=== PATIENT | male | born 1990 | race Hispanic/Latino ===

== ENCOUNTER 2017-08-02 17:46 | Observation (INO) | payer OTHER ==
[2017-08-02] MEDS ORDERED: Sodium Chloride 0.9% 1,000 ML IV STA (19:22)
--- NOTE | 2017-08-02 19:33 | ED PDOC ---
HPI: General Adult Time Seen by Provider: 08/02/17 18:49 Chief Complaint (Nursing): Abdominal Pain History Per: Patient Additional Complaint(s): Pt. states since 2100 yesterday he's had constant abdominal pain. States initially pain was localized to the epigastrum but as the day progressed today pain worsened and traveled to the RLQ. Reports initially feeling nauseous which has since resolved. Denies vomiting, diarrhea, fever, chest pain, SOB, rash, trauma, palpitations. Last BM was today and was normal. Past Medical History Reviewed: Historical Data, Nursing Documentation, Vital Signs Vital Signs: Last Vital Signs Temp 98 F 08/02/17 18:22 Pulse 82 08/02/17 18:22 Resp 18 08/02/17 18:22 BP 133/86 08/02/17 18:22 Pulse Ox 99 08/02/17 18:22 - Medical History PMH: Cardia Arrhythmia - Surgical History Other surgeries: L inguinal hernia repair - Family History Family History: States: No Known Family Hx - Allergies Allergies/Adverse Reactions: Allergies Allergy/AdvReac Type Severity Reaction Status Date / Time No Known Allergies Allergy Verified 08/02/17 18:22 Review of Systems ROS Statement: Except As Marked, All Systems Reviewed And Found Negative Gastrointestinal: Positive for: Nausea, Abdominal Pain Physical Exam - Reviewed Nursing Documentation Reviewed: Yes Vital Signs Reviewed: Yes - Physical Exam Appears: Positive for: Well, Non-toxic, No Acute Distress Head Exam: Positive for: ATRAUMATIC, NORMAL INSPECTION, NORMOCEPHALIC Skin: Positive for: Normal Color, Warm. Negative for: Rash Eye Exam: Positive for: EOMI, Normal appearance, PERRL ENT: Positive for: Normal ENT Inspection Neck: Positive for: Normal, Painless ROM Cardiovascular/Chest: Positive for: Regular Rate, Rhythm Respiratory: Positive for: CNT, Normal Breath Sounds Gastrointestinal/Abdominal: Positive for: Normal Exam, Bowel Sounds, Soft, Tenderness (mild RLQ), Other (negative psoas and obturator sign). Negative for : Guarding Back: Positive for: Normal Inspection. Negative for: L CVA Tenderness, R CVA Tenderness Extremity: Positive for: Normal ROM Neurologic/Psych: Positive for: Alert, Oriented - ECG O2 Sat by Pulse Oximetry: 99 ED OBSERVATION Date of observation admission: 08/02/17 Time of observation admission: 19:22 - Observation admission statement Patient is being placed in observation because:: abdominal pain - Progress Note Progress Note: 08/02/17 19:[address] abd/pelvis w/ IV contrast ordered. IV NS bolus ordered. Pt. kept NPO. Pt. was offered pain/antiemetics but refused. Disposition - Clinical Impression Clinical Impression: Abdominal pain - Patient ED Disposition Is Patient to be Admitted: Transfer of Care (Signed out to Edwina CHENEY pending CT and lab results.) - Disposition Disposition Time: 20:00 Condition: STABLE Forms: [employer] (Khmer)
[2017-08-02 20:18] LABS: BASO # 0.1 K/uL (0.0-0.2); BASO % 0.9 % (0.0-2.0); EOS # 0.2 K/uL (0.0-0.7); EOS % 1.8 % (0.0-4.0); HEMATOCRIT 46.4 % (35.0-51.0); LYMPH # 1.4 K/uL (1.0-4.3); MEAN CELL VOLUME 89.5 fl (80.0-94.0); MEAN CORPUSCULAR HEMOGLOBIN 30.3 pg (27.0-31.0); MEAN CORPUSCULAR HGB CONC 33.8 g/dL (33.0-37.0); MEAN PLATELET VOLUME 7.5 fl (7.2-11.7); MONO # 0.9 K/uL (0.0-0.8); MONO % 10.8 % (0.0-10.0); NEUT # 6.1 K/uL (1.8-7.0); NEUT % 70.5 % (50.0-75.0); NRBC % 0.2 % (0.0-0.0); RED CELL DISTRIBUTION WIDTH 12.9 % (11.5-14.5); WHITE BLOOD COUNT 8.7 K/uL (4.8-10.8)
[2017-08-02 20:22] LABS: ALB/GLOB RATIO 1.8 (1.0-2.1); ALKALINE PHOSPHATASE 75 U/L (38-126); ALT/SGPT 49 U/L (21-72); AST/SGOT 43 U/L (17-59); BILIRUBIN,TOTAL 0.7 mg/dl (0.2-1.3); BLOOD UREA NITROGEN 16 mg/dl (9-20); CALCIUM 9.8 mg/dL (8.4-10.2); CARBON DIOXIDE 26 mmol/L (22-30); CHLORIDE 101 mmol/L (98-107); GFR AFRICAN-AMERICAN > 60; GLUCOSE,RANDOM 96 mg/dL (75-110); LIPASE 100 U/L (23-300); POTASSIUM 4.2 MMOL/L (3.6-5.0); SODIUM 139 mmol/l (132-148); TOTAL PROTEIN 7.5 G/DL (6.3-8.2)
[2017-08-02 20:33] LABS: RBC URINE 1 /hpf (0-3); URINE BACTERIA RARE (<OCC); URINE BILIRUBIN NEGATIVE (NEGATIVE); URINE BLOOD NEGATIVE (NEGATIVE); URINE COLOR YELLOW (YELLOW); URINE GLUCOSE (UA) NEG (Normal); URINE KETONE NEGATIVE (NEGATIVE); URINE LEUKOCYTE ESTERASE NEG Leu/uL (Negative); URINE PROTEIN NEGATIVE (NEGATIVE); URINE UROBILINOGEN 0.2-1.0 mg/dL (0.2-1.0); WBC URINE 1 /hpf (0-5)
[2017-08-02] MEDS ORDERED: Sodium Chloride 0.9% 50 ML IV ONE (20:54)
[2017-08-02] MEDS ORDERED: Iohexol 300 100 ML IJ ONE (20:54)
--- NOTE | 2017-08-02 22:17 | ED PDOC ---
- Laboratory Results Result Diagrams: 08/02/17 19:45 08/02/17 19:45 - ECG O2 Sat by Pulse Oximetry: 99 - Progress ED Course And Treament: Case endorsed to repairer typewriter from Kian CHENEY pending labs, CT EXAM: CT Abdomen and Pelvis With Intravenous Contrast EXAM DATE/TIME: Exam ordered 08/02/2017 7:59 PM CLINICAL HISTORY: 26 years old, male; Pain; Abdominal pain; Other: Rlq pain; Prior surgery; Surgery date: 6+ months; Surgery type: Lt inguinal hernia repair; Additional info: Rlq abdominal pain TECHNIQUE: Axial computed tomography images of the abdomen and pelvis with intravenous contrast. All CT scans at this facility use one or more dose reduction techniques, viz.: automated exposure control; ma/kV adjustment per patient size (including targeted exams where dose is matched to indication; i.e. head); or iterative reconstruction technique. Coronal and sagittal reformatted images were created and reviewed. CONTRAST: 95 mL of Omnipaque administered intravenously. COMPARISON: No relevant prior studies available. FINDINGS: Lower thorax: No acute findings. ABDOMEN: Liver: Unremarkable. No mass. Gallbladder and bile ducts: Unremarkable. No calcified stones. No ductal dilation. Pancreas: Unremarkable. No mass. No ductal dilation. Spleen: Unremarkable. No splenomegaly. Adrenals: Unremarkable. No mass. Kidneys and ureters: Unremarkable. No solid mass. No hydronephrosis. Stomach and bowel: Unremarkable. No obstruction. No mucosal thickening. Appendix: The appendix is of borderline size measuring 8-9 mm and suggests some wall thickening and edema measuring 3 mm. There is slight thickening of the adjacent lateral conal fascia. Early appendicitis is not excluded. PELVIS: Bladder: There is mild bladder wall thickening, however, the bladder is nondistended and is nonspecific. Reproductive: Unremarkable as visualized. ABDOMEN and PELVIS: Intraperitoneal space: Unremarkable. No free air. No significant fluid collection. Bones/joints: No acute fracture. No dislocation. Soft tissues: Unremarkable. Vasculature: Unremarkable. No abdominal aortic aneurysm. Lymph nodes: Unremarkable. No enlarged lymph nodes. IMPRESSION: 1. Borderline size of the appendix with slight wall thickening and question of slight adjacent induration. Early appendicitis is not excluded. 2. Otherwise negative CT abdomen/pelvis. Case discussed with Dr. Shirley, Surgeon on-call, recommends abx, admit for observation under her service and contact medical surgical tech. Case discussed with Dr. Rangel, medical surgical tech on-call. Disposition - Clinical Impression Clinical Impression: Appendicitis - POA Present On Arrival: None - Disposition Disposition: Hospitalized as Observation Patient Disposition Time: 22:30 Condition: FAIR
[2017-08-02] MEDS ORDERED: Piperacillin/Tazobact 3.375 GM in Sodium Chloride 0.9% 100 ML IV ONE (22:29)
--- NOTE | 2017-08-03 00:32 | CP.PCM.HP ---
History of Present Illness - History of Present Illness History of Present Illness: H&P Surgery note- Dr. Shirley 26M w/ no relevant PMH presented to [facility] ED with dull achy abdominal pain that started 21:00 yesterday evening. Pain localized to midepigastrum and migrated to the RLQ. Denies recent foreign travel within the last month. No sick contacts. Denies current N/V F/C CP/SOB BRBPR. Pt had two episodes of non bloody diarrhea PMH: SVT (resolved) PSH: heart ablation (2007), left forearm ORIF (1998) ALL: NKDA Present on Admission - Present on Admission Any Indicators Present on Admission: No Review of Systems - Review of Systems All systems: reviewed and no additional remarkable complaints except - Constitutional Constitutional: As Per HPI Past Patient History - Past Social History Smoking Status: Never Smoked - CARDIAC Hx Cardiac Disorders: Yes - PSYCHIATRIC Hx Substance Use: No - SURGICAL HISTORY Hx Surgeries: Yes (ablation) Hx Musculoskeletal Surgery: Yes (left arm) Meds Allergies/Adverse Reactions: Allergies Allergy/AdvReac Type Severity Reaction Status Date / Time No Known Allergies Allergy Verified 08/02/17 18:22 Physical Exam - Constitutional Appears: Non-toxic, No Acute Distress - Eye Exam Eye Exam: EOMI - Respiratory Exam Respiratory Exam: NORMAL BREATHING PATTERN. absent: Accessory Muscle Use, Rales , Rhonchi - Cardiovascular Exam Cardiovascular Exam: +S1, +S2 - GI/Abdominal Exam GI & Abdominal Exam: Distended, Guarding, Soft, Tenderness. absent: Firm, Rebound Additional comments: TTP RLQ, +mcburney, +rebound, -rovsings - Neurological Exam Neurological exam: Alert, Oriented x3 - Skin Skin Exam: Normal Color, Warm Results - Vital Signs Recent Vital Signs: Last Vital Signs Temp 98.2 F 08/03/17 00:16 Pulse 67 08/03/17 00:16 Resp 20 08/03/17 00:16 BP 124/82 08/03/17 00:16 Pulse Ox 97 08/03/17 00:16 - Labs Result Diagrams: 08/02/17 19:45 08/02/17 19:45 Labs: Laboratory Results - last 24 hr 08/02/17 08/02/17 08/02/17 19:45 19:45 20:08 WBC 8.7 RBC 5.18 Hgb 15.7 Hct 46.4 MCV 89.5 MCH 30.3 MCHC 33.8 RDW 12.9 Plt Count 276 MPV 7.5 Neut % (Auto) 70.5 Lymph % (Auto) 16.0 L [place] % (Auto) 10.8 H Eos % (Auto) 1.8 Baso % (Auto) 0.9 Neut # 6.1 Lymph # 1.4 [place] # 0.9 H Eos # 0.2 Baso # 0.1 Sodium 139 Potassium 4.2 Chloride 101 Carbon Dioxide 26 Anion Gap 16 BUN 16 Creatinine 0.9 Est GFR ( Amer) > 60 Est GFR (Non-Af Amer) > 60 Random Glucose 96 Calcium 9.8 Total Bilirubin 0.7 AST 43 ALT 49 Alkaline Phosphatase 75 Total Protein 7.5 Albumin 4.8 Globulin 2.7 Albumin/Globulin Ratio 1.8 Lipase 100 Urine Color Yellow Urine Clarity Slighty-cloudy Urine pH 6.0 Ur Specific [place] 1.026 Urine Protein Negative Urine Glucose (UA) Neg Urine Ketones Negative Urine Blood Negative Urine Nitrate Negative Urine Bilirubin Negative Urine Urobilinogen 0.2-1.0 Ur Leukocyte Esterase Neg Urine RBC (Auto) 1 Urine Microscopic WBC 1 Ur Squamous Epith Cells < 1 Urine Bacteria Rare Assessment & Plan - Assessment and Plan (Free Text) Assessment: 26M RLQ pain Plan: - NPO - GI/DVT ppx - IVF/abx - pain control - plan for OR will d/w Dr. Casper Rangel PGY1
[2017-08-03] MEDS ORDERED: DiphenhydrAMINE 50 mg/ml Inj IVP STA (01:01)
[2017-08-03] MEDS: Sodium Chloride 0.9% 1,000 ML IV SCH ×2 (01:24→10:40)
[2017-08-03] MEDS: Piperacillin/Tazobact 3.375 GM in Sodium Chloride 0.9% 100 ML IVPB SCH ×2 (01:24→06:19)
[2017-08-03 03:25] VITALS: RESP 18
[2017-08-03] MEDS ORDERED: Piperacillin/Tazobact 3.375 GM in Sodium Chloride 0.9% 100 ML IVPB SCH ×2 (06:30→10:00)
[2017-08-03 07:12] LABS: BASO # 0.1 K/uL (0.0-0.2); BASO % 0.9 % (0.0-2.0); EOS # 0.2 K/uL (0.0-0.7); EOS % 3.1 % (0.0-4.0); HEMATOCRIT 44.1 % (35.0-51.0); LYMPH # 1.7 K/uL (1.0-4.3); LYMPH % 27.3 % (20.0-40.0); MEAN CELL VOLUME 90.3 fl (80.0-94.0); MEAN CORPUSCULAR HEMOGLOBIN 30.5 pg (27.0-31.0); MEAN CORPUSCULAR HGB CONC 33.8 g/dL (33.0-37.0); MEAN PLATELET VOLUME 7.7 fl (7.2-11.7); MONO # 0.9 K/uL (0.0-0.8); MONO % 13.8 % (0.0-10.0); NEUT # 3.4 K/uL (1.8-7.0); NEUT % 54.9 % (50.0-75.0); NRBC % 0.2 % (0.0-0.0); RED CELL DISTRIBUTION WIDTH 12.6 % (11.5-14.5); WHITE BLOOD COUNT 6.2 K/uL (4.8-10.8)
[2017-08-03 07:25] LABS: ALB/GLOB RATIO 1.8 (1.0-2.1); ALKALINE PHOSPHATASE 62 U/L (38-126); ALT/SGPT 48 U/L (21-72); AST/SGOT 25 U/L (17-59); BILIRUBIN,TOTAL 1.1 mg/dl (0.2-1.3); BLOOD UREA NITROGEN 11 mg/dl (9-20); CALCIUM 9.6 mg/dL (8.4-10.2); CARBON DIOXIDE 26 mmol/L (22-30); CHLORIDE 104 mmol/L (98-107); GFR AFRICAN-AMERICAN > 60; GLUCOSE,RANDOM 76 mg/dL (75-110); POTASSIUM 4.7 MMOL/L (3.6-5.0); SODIUM 141 mmol/l (132-148); TOTAL PROTEIN 6.7 G/DL (6.3-8.2)
[2017-08-03 07:37] VITALS: BP 111/72; PULSE 57; TEMP 97.5; O2SAT 97
--- NOTE | 2017-08-03 09:19 | CT ---
PROCEDURE: CT Abdomen and Pelvis with contrast HISTORY: RLQ abdominal pain. History of left inguinal hernia repair. COMPARISON: None. TECHNIQUE: Contrast dose: 95 mL of Omnipaque 300. Axial and reformatted coronal and sagittal CT images of the abdomen and pelvis were obtained after IV contrast administration. Radiation dose: Total exam DLP = 1085.99 mGy-cm. This CT exam was performed using one or more of the following dose reduction techniques: Automated exposure control, adjustment of the mA and/or kV according to patient size, and/or use of iterative reconstruction technique. FINDINGS: LOWER THORAX: Unremarkable. LIVER: Unremarkable. No gross lesion or ductal dilatation. GALLBLADDER AND BILE DUCTS: Unremarkable. PANCREAS: Unremarkable. No gross lesion or ductal dilatation. SPLEEN: Unremarkable. ADRENALS: Unremarkable. No mass. KIDNEYS AND URETERS: Unremarkable. No hydronephrosis. No solid mass. VASCULATURE: Unremarkable. No aortic aneurysm. BOWEL: Unremarkable. No obstruction. No gross mural thickening. APPENDIX: The appendix is prominent in size demonstrate diffuse mild thick enhancing wall. There is mild stranding/induration adjacent to the appendix at the right lower abdomen. The possibility of an air early appendicitis should be considered. PERITONEUM: Unremarkable. No free fluid. No free air. LYMPH NODES: Unremarkable. No enlarged lymph nodes. BLADDER: Unremarkable. REPRODUCTIVE: Unremarkable. BONES: No acute fracture. OTHER FINDINGS: None. IMPRESSION: Findings suspicious for an early appendicitis as described above. Otherwise no evidence of acute pathology in the abdomen and pelvis. Preliminary report was submitted by [facility].
== END 2017-08-03 16:43 | disposition home or self-care (01) ==
LOC: H.ER 17:46 → H.EROBSV 19:22 → H.ERHOLD 22:34 → H.MEDSURG1 08-03 00:03
PROVIDERS: ADMIT Specialist; ATTEND Specialist
DX: K37 Unspecified appendicitis (principal); R10.31 Right lower quadrant pain; I47.1 Supraventricular tachycardia
CPT/HCPCS: 36415; 74177; 80053; 81003; 83690; 85025; 87040; 96360; 96361; 99283; G0378; J1200; J2543; J7040; Q9967